=== PATIENT | female | born 1945 | race Caucasian/White ===

== ENCOUNTER → 2017-10-15 | Day surgery (SDC) | payer MEDICARE, OTHER ==
[2017-10-11 14:09] VITALS: BMI 26.1
[~2017-10-15] MED LIST: LACTATED RINGERS 1,000 ML IV SCH; LIDOCAINE 1% 20 ML VIAL (10MG/ML) FOR IV START INTRADERMA ONE; LIDOCAINE 1% INJ 10MG/ML (20 ML MDV) ONE; PROPOFOL 10 MG/ML 20 ML VIAL IV ONE; fentaNYL (PF) 50 MCG/ML 2 ML AMP ONE
[2017-10-15 08:20] VITALS: RESP 18; TEMP 96.9
[2017-10-15 08:51] LABS: Glucose,Whole Blood 70 mg/dL (75-99)
--- NOTE | 2017-10-15 09:27 | P.OP ---
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 Biopsies obtained, small internal hemorrhoids Endoscopic evaluation from the colostomy site normal mucosa to cecum 20 cm, at the orifice edge is a small but appears to be hyperplastic polypoid change Procedure(s) Performed: Endoscopic evaluation from rectum and ostomy site, anoscopic examination Anesthesia: MAC Surgeon: Monie Chopra Estimated Blood Loss (ml): 0 IV fluids (ml): 600 Pathology: other (Biopsies of left colon) Condition: stable Disposition: PACU Indications for Procedure: Patient is a 72-year-old white female who approximately one year ago status post transverse colon resection for near obstructing colon cancer. 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 Rectal examination was performed. Patient was noted to have good sphincter tone no masses. The anal orifice appeared to be somewhat tight. The colonoscope was able to be passed through the anus into the rectum was passed through the residual sigmoid colon up to approximately 80 cm. From 20-80 cm there was marked inflammation of the mucosa. This appeared consistent with disuse proctitis. No polypoid lesions or tumors were identified. 2 advance the scope was believed to be was stapled end of the anastomosis at the end. Several biopsies were obtained of the inflamed mucosa. The scope was carefully withdrawn being careful to evaluate the mucosa and again I inflated mucosa was noted from approximately a centimeters to 20 cm however no polypoid lesions were identified. The scope was brought down into the rectum and was not able to be easily retroflexed. Although in the rectum no lesions of concern other than some inflammation were identified and anoscopic exam was performed. The anoscope was carefully introduced into the anal orifice and slowly withdrawn. On anoscopic exam small internal hemorrhoids identified otherwise no lesions of concern. Endoscopic evaluation was then performed to the ostomy orifice. The patient was placed on her back. And digital examination revealed that there was a small hernia with the colonic opening 10 into the right side of the abdomen. The scope was carefully introduced and able to be introduced to the area of the cecum. Differential observation mucosa did not reveal any lesions of concern in the cecum or the residual right colon. I approximately 20 cm of bowel was left. The patient was noted at the orifice of the ostomy nurse skin level to have a very small polypoid change which appeared to be consistent with possible hyperplastic change. This area will be removed showed the ostomy be reversed. Impression/plan: 1. 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 Questionable small polypoid change near the opening of colostomy 4. Small internal hemorrhoids Plan: 1. Await pathology results 2. Probable reversal of colostomy
--- NOTE | 2017-10-15 09:28 | P.DS ---
Providers Attending physician: Monie Chopra Primary care physician: Sam Olvera Plan - Discharge Summary New Discharge Prescriptions: No Action Cholecalciferol [Vitamin D3] 2,000 unit PO DAILY Pyridoxine [Vitamin B-6] 250 mg PO BID Atorvastatin [Lipitor] 20 mg PO DAILY Potassium Gluconate Tab 595 mg PO DAILY Gabapentin [Neurontin] 300 mg PO BID Cetirizine HCl [Zyrtec] 10 mg PO DAILY Biotin 10,000 mcg PO DAILY predniSONE 20 mg PO DAILY Ipratropium-Albuterol Nebulize [Duoneb 0.5 mg-3 mg/3 ml Soln] 0 ml INHALATION BID PRN PRN Reason: sob Clotrimazole Cream [Lotrimin Cream] 1 applic TOPICAL DAILY Fluticasone/Vilanterol [Breo Ellipta 100-25 Mcg Inhaler] 1 inhalation PO Q24HR Discharge Medication List Cholecalciferol [Vitamin D3] 2,000 unit PO DAILY 08/02/17 [History] Atorvastatin [Lipitor] 20 mg PO DAILY 10/11/17 [History] Biotin 10,000 mcg PO DAILY 10/11/17 [History] Cetirizine HCl [Zyrtec] 10 mg PO DAILY 10/11/17 [History] Clotrimazole Cream [Lotrimin Cream] 1 applic TOPICAL DAILY 10/11/17 [History] Fluticasone/Vilanterol [Breo Ellipta 100-25 Mcg Inhaler] 1 inhalation PO Q24HR 10/11/17 [History] Gabapentin [Neurontin] 300 mg PO BID 10/11/17 [History] Ipratropium-Albuterol Nebulize [Duoneb 0.5 mg-3 mg/3 ml Soln] 0 ml INHALATION BID PRN 10/11/17 [History] Potassium Gluconate Tab 595 mg PO DAILY 10/11/17 [History] Pyridoxine [Vitamin B-6] 250 mg PO BID 10/11/17 [History] predniSONE 20 mg PO DAILY 10/11/17 [History] Follow up Appointment(s)/Referral(s): Monie Chopra MD [STAFF PHYSICIAN] - 1 Week Patient Instructions/Handouts: *Sur[facility] - (Anesthesia) Endoscopy Discharge Instructions, Colonoscopy (DC) Activity/Diet/Wound Care/Special Instructions: Do not drive today Follow-up with Dr. Naranjo in 1 week Discharge Disposition: HOME SELF-CARE
[2017-10-15 09:38] VITALS: BP 180/84; PULSE 64
== END | disposition home or self-care (01) ==
LOC: ORWHC2ENDO 07:57
PROVIDERS: ATTEND Surgery
DX: K52.9 Noninfective gastroenteritis and colitis, unspecified (principal); K64.8 Other hemorrhoids; K46.9 Unspecified abdominal hernia without obstruction or gangrene; K63.5 Polyp of colon; Z93.3 Colostomy status; Z85.038 Personal history of other malignant neoplasm of large intestine; Z90.49 Acquired absence of other specified parts of digestive tract; M19.90 Unspecified osteoarthritis, unspecified site; J44.9 Chronic obstructive pulmonary disease, unspecified; I10 Essential (primary) hypertension; E78.5 Hyperlipidemia, unspecified; C44.90 Unspecified malignant neoplasm of skin, unspecified; Z86.718 Personal history of other venous thrombosis and embolism; Z86.73 Personal history of transient ischemic attack (TIA), and cerebral infarction without residual deficits; Z99.81 Dependence on supplemental oxygen; Z79.51 Long term (current) use of inhaled steroids; Z79.52 Long term (current) use of systemic steroids; Z79.01 Long term (current) use of anticoagulants; Z79.899 Other long term (current) drug therapy; Z88.1 Allergy status to other antibiotic agents; Z87.891 Personal history of nicotine dependence
CPT/HCPCS: 88305; 46600; 44389; J2001; J3010; J2704; 44388; 45380

== ENCOUNTER → 2020-02-15 | Outpatient (CLI) | payer MEDICARE, OTHER ==
--- NOTE | 2020-02-15 13:07 | US ---
EXAMINATION TYPE: US venous doppler duplex LE RT DATE OF EXAM: 02/15/2020 12:46 PM COMPARISON: NONE CLINICAL HISTORY: M25.561 R Knee Pain. SIDE PERFORMED: Right TECHNIQUE: The lower extremity deep venous system is examined utilizing real time linear array sonog mario with graded compression, doppler sonography and color-flow sonography. VESSELS IMAGED: External Iliac Vein (EIV) Common Femoral Vein Deep Femoral Vein Greater Saphenous Vein * Femoral Vein Popliteal Vein Small Saphenous Vein * Proximal Calf Veins (* superficial vessels) Right Leg: Negative for DVT Cystic area visualized measuring 2.8 x 0.5 x 2.0 cm, possible vivas's cyst Grayscale, color doppler, spectral doppler imaging performed of the deep veins of the right lower ext remity. There is normal flow, compressibility, vascular waveforms. IMPRESSION: No ultrasound evidence for acute DVT in the right lower extremity. Suspected small popli teal cyst marked towards the end of the study.
== END | disposition home or self-care (01) ==
LOC: RADUSWWP 12:10
PROVIDERS: ATTEND Orthopaedic Surgery
DX: M25.561 Pain in right knee (principal); M25.571 Pain in right ankle and joints of right foot; I80.9 Phlebitis and thrombophlebitis of unspecified site; M17.11 Unilateral primary osteoarthritis, right knee; M79.661 Pain in right lower leg

== ENCOUNTER → 2020-03-30 | Outpatient (CLI) | payer MEDICARE, OTHER ==
--- NOTE | 2020-03-30 16:37 | MR ---
EXAMINATION TYPE: MR knee RT wo con DATE OF EXAM: 03/30/2020 COMPARISON: None HISTORY: Rt knee patellar bursitis TECHNIQUE: Multiplanar, multisequence imaging of the right knee is performed without IV contrast. FINDINGS: MEDIAL MENISCUS: Posterior horn of the medial meniscus shows linear increased signal at the undersurf geoff extending to the articular surface LATERAL MENISCUS: Anterior and posterior horns are intact without tear. CRUCIATE LIGAMENTS: The anterior and posterior cruciate ligaments are intact and unremarkable. COLLATERAL LIGAMENTS: The medial collateral ligament and lateral collateral ligament complex are inta ct and unremarkable. EXTENSOR MECHANISM: Visualized quadriceps and patellar tendons are intact. EFFUSION: Small suprapatellar joint effusion. POPLITEAL CYST: There is a semimembranosus gastrocnemius cyst measuring approximately 1.6 x 2.9 x 0. 9 cm. TRICOMPARTMENT SPACES: Joint space loss at the patellofemoral joint CARTILAGE: There is grade 2 to grade III chondromalacia at the posterior patella BONE MARROW SIGNAL: No focal abnormal marrow signal is appreciated. OTHER: Prepatellar edema changes are present. Septated T2 intense focus at the posterior aspect of t he knee joint may represent a small meniscal cyst IMPRESSION: Tear of the posterior horn of the medial meniscus. Joint effusion. Osteoarthritis.
== END | disposition home or self-care (01) ==
LOC: RADMRIMAIN 15:00
PROVIDERS: ATTEND Family Medicine
DX: S83.241A Other tear of medial meniscus, current injury, right knee, initial encounter (principal); M17.11 Unilateral primary osteoarthritis, right knee; M25.461 Effusion, right knee

== ENCOUNTER → 2022-03-14 | Outpatient (CLI) | payer MEDICARE, OTHER ==
--- NOTE | 2022-03-14 10:51 | CTL ---
EXAMINATION TYPE: CT Low Dose Lung DATE OF EXAM ORDERED: 03/14/2022 HISTORY: Tobacco use. Lung cancer screening CT DLP: 2.[address] CTDI: 89.2 mGy Automated exposure control for dose reduction was used. SCREENING VISIT: Baseline COMPARISON: No previous CT scan is available for comparison. TECHNIQUE: Low dose computed tomography scan was performed through the chest at 1 mm thick sections a nd reconstructed images in multiple planes at 1 mm and [address] DIAGNOSTIC QUALITY: Satisfactory FINDINGS: LUNG NODULES: None. Left lung solid [address] image 224. LUNGS: COPD: Severity: [id number] Fibrosis: Severity: Mild Lymph nodes: No pathologically enlarged lymph nodes. Other findings: Right basal posterior subsegmental pulmonary atelectasis. Other scattered smaller pul monary atelectasis. Scattered segments of mild bronchial wall thickening, possibly related to chronic bronchitis. RIGHT PLEURAL SPACE: Effusion: None Calcification: None Thickening: None Pneumothorax: None LEFT PLEURAL SPACE: Effusion: None Calcification: None Thickening: None Pneumothorax: None HEART: Heart Size: Normal Coronary Calcification: Moderate Pericardial Effusion: None OTHER FINDINGS: Upper abdomen: Suspected colonic anastomosis in the upper abdomen. Bony thorax: Levoscoliosis of the midthoracic spine. Supraclavicular region: None Other: The pulmonary trunk measures 3.3 cm suggesting pulmonary hypertension. Scattered arterial athe rosclerotic calcifications. IMPRESSION: 5 mm left lung nodule. COPD changes and other incidental findings as described above. CT LUNG RAD AND CT CHEST RECOMMENDATION: Lung-Rad 2 Benign Appearance or Behavior: Continue annual sc reening with LDCT in 12 months. S Modifier (other clinically significant findings): As above.
== END | disposition home or self-care (01) ==
LOC: RADCTMAIN 08:49
PROVIDERS: ATTEND Internal Medicine Critical Care Medicine
DX: Z12.2 Encounter for screening for malignant neoplasm of respiratory organs (principal); J44.9 Chronic obstructive pulmonary disease, unspecified; Z87.891 Personal history of nicotine dependence
CPT/HCPCS: 71271

== ENCOUNTER → 2022-05-28 | Outpatient (CLI) | payer MEDICARE, OTHER ==
[2022-05-28 15:45] LABS: ALT 25 U/L (8-44); AST 40 U/L (13-35); Chol/HDL Ratio 2.46 Ratio; VLDL Calculation 11.66 mg/dL (5.00-40.00)
== END | disposition home or self-care (01) ==
LOC: LABWHC1 09:19
PROVIDERS: ATTEND Internal Medicine
DX: E78.2 Mixed hyperlipidemia (principal)
CPT/HCPCS: 36415; 80061; 84450; 84460

== ENCOUNTER → 2023-08-07 | Outpatient (CLI) | payer MEDICARE, OTHER ==
[2023-08-07 19:55] LABS: Basophils # (A) 0.06 X 10*3/uL (0.00-0.10); Basophils % (A) 0.8 %; Eosinophils # (A) 0 X 10*3/uL (0.04-0.35); Eosinophils % (A) 0 %; HCT 40.2 % (37.2-46.3); Lymphocytes # (A) 2.13 X 10*3/uL (0.90-5.00); Lymphocytes % (A) 27.1 %; MCH 30.3 pg (27.0-32.0); MCHC 32.3 g/dL (32.0-37.0); MCV 93.7 FL (80.0-97.0); Monocytes # (A) 0.66 X 10*3/uL (0.20-1.00); Monocytes % (A) 8.4 %; NRBC Per 100 WBC 0 X 10*3/uL (0.00-0.01); Neutrophils # (A) 4.98 X 10*3/uL (1.80-7.70); Neutrophils % (A) 63.3 %; Platelet Count 271 X 10*3/uL (140-440); RBC 4.29 X 10*6/uL (4.10-5.20); RDW 12.4 % (11.5-14.5); WBC 7.86 X 10*3/uL (4.50-10.00)
[2023-08-08 02:41] LABS: ALT 47 U/L (8-44); AST 55 U/L (13-35); Alkaline Phosphatase 133 U/L (41-126); BUN/Creat Ratio 17.38 Ratio (12.00-20.00); Blood Urea Nitrogen 13.9 mg/dL (9.0-27.0); Calcium 9.4 mg/dL (8.7-10.3); Carbon Dioxide 25.3 mmol/L (21.6-31.8); Chloride 100 mmol/L (96-109); Glucose 97 mg/dL (70-110); Potassium 4.5 mmol/L (3.5-5.5); Sodium 135 mmol/L (135-145); Total Bilirubin 0.3 mg/dL (0.3-1.2)
== END | disposition home or self-care (01) ==
LOC: LABWHC1 12:37
PROVIDERS: ATTEND Internal Medicine Hematology & Oncology
DX: C18.9 Malignant neoplasm of colon, unspecified (principal); Z87.891 Personal history of nicotine dependence
CPT/HCPCS: 36415; 80053; 82378; 85025

== ENCOUNTER → 2024-12-31 | Outpatient (CLI) | payer MEDICARE, OTHER ==
[2024-12-31 09:49] LABS: Basophils % (A) 0 %; Eosinophils # (A) 0.1 k/uL (0-0.7); Eosinophils % (A) 1 %; HCT 34.5 % (34.0-46.0); HGB 10.9 gm/dL (11.4-16.0); Hypochromasia Moderate; Lymphocytes # (A) 1.5 k/uL (1.0-4.8); Lymphocytes % (A) 21 %; MCH 30.5 pg (25.0-35.0); MCHC 31.7 g/dL (31.0-37.0); MCV 96.3 fL (80.0-100.0); Mean Platelet Volume 6.8; Monocytes # (A) 0.6 k/uL (0-1.0); Monocytes % (A) 8 %; Neutrophils # (A) 4.8 k/uL (1.3-7.7); Neutrophils % (A) 68 %; Platelet Count 432 k/uL (150-450); RBC 3.58 m/uL (3.80-5.40); WBC 7.1 k/uL (3.8-10.6)
[2024-12-31 09:54] LABS: Prothrombin Time 10.6 sec (10.0-12.5)
[2024-12-31 10:12] LABS: African American GFR (CKD) >90 (>60 ml/min/1.73 sqM); Anion Gap 4 mmol/L; Blood Urea Nitrogen 16 mg/dL (7-17); Calcium 9.2 mg/dL (8.4-10.2); Carbon Dioxide 36 mmol/L (22-30); Chloride 94 mmol/L (98-107); Glucose 114 mg/dL (74-99); Non-African American GFR(CKD) 78 (>60 ml/min/1.73 sqM); Potassium 3.5 mmol/L (3.5-5.1); Sodium 134 mmol/L (137-145)
--- NOTE | 2024-12-31 13:14 | CT ---
EXAMINATION TYPE: CT angio chest DATE OF EXAM: 12/31/2024 COMPARISON: CT low-dose thorax 03/14/2022 CLINICAL INDICATION: Female, 79 years old with history of I48.0 PAROXYSMAL ATRIAL FIBRILLATION; [facility], pre surgical watchman TECHNIQUE: CTA scan of the thorax is performed with IV Contrast, patient injected with 65 ML mL of Isovue 370, p ulmonary embolism protocol. MIP images are created and reviewed. CT DLP: 1375.[address] CTDI: mGy Automated exposure control for dose reduction was used. FINDINGS: The ascending thoracic aorta is normal in caliber measuring approximately 3 cm. The aortic root is no rmal in caliber measuring approximately 3.3 cm. There is no mediastinal, hilar or axillary adenopathy. There are no filling defects within the pulmonary artery to suggest pulmonary embolism. There is a focal area of interstitial thickening right middle lobe consistent with mild chronic inter stitial scarring or fibrosis. There are no suspicious lung masses or nodules in the visualized lung f ields which are not imaged in their entirety. IMPRESSION: 1. No aneurysm or dissection of the thoracic aorta. 2. No cardiomegaly. 3. No mediastinal or hilar adenopathy. 4. Focal scarring or fibrosis in the right middle lobe. [facility], Workstation: [email or web address] 12/31/2024 1:12 PM
== END | disposition home or self-care (01) ==
LOC: RADCTMAIN 09:24
PROVIDERS: ATTEND Student in an Organized Health Care Education/Training Program
DX: I48.0 Paroxysmal atrial fibrillation (principal)
CPT/HCPCS: 80048; 85025; 85610; 71275; 36415; Q9967

== ENCOUNTER → 2025-03-23 | Outpatient (CLI) | payer MEDICARE, OTHER ==
[2025-03-23 16:45] LABS: Basophils # (A) 0.05 10*3/uL (0.00-0.10); Basophils % (A) 0.6 %; HCT 38.4 % (37.2-46.3); HGB 12.1 g/dL (12.0-15.0); Lymphocytes # (A) 2.02 10*3/uL (0.90-5.00); Lymphocytes % (A) 25.9 %; MCH 28.7 pg (27.0-32.0); MCHC 31.5 g/dL (32.0-37.0); Mean Platelet Volume 9.3 fL (9.5-12.2); Monocytes # (A) 0.63 10*3/uL (0.20-1.00); Monocytes % (A) 8.1 %; Neutrophils # (A) 5.09 10*3/uL (1.80-7.70); Neutrophils % (A) 65.1 %; Platelet Count 281 10*3/uL (140-440); RBC 4.22 10*6/uL (4.10-5.20); RDW 13.9 % (11.5-14.5); WBC 7.81 10*3/uL (4.50-10.00)
[2025-03-23 17:04] LABS: African American GFR (CKD) 89 (>60 ml/min/1.73 sqM); Anion Gap 9 mmol/L; Blood Urea Nitrogen 18 mg/dL (7-17); Carbon Dioxide 31 mmol/L (22-30); Chloride 98 mmol/L (98-107); Glucose 92 mg/dL (74-99); Non-African American GFR(CKD) 77 (>60 ml/min/1.73 sqM); Potassium 4.4 mmol/L (3.5-5.1); Sodium 138 mmol/L (137-145)
[2025-03-23 17:07] LABS: INR 0.9 (<1.2); Prothrombin Time 10.3 sec (10.0-12.5)
--- NOTE | 2025-03-23 18:29 | CT ---
EXAMINATION TYPE: CT angio chest DATE OF EXAM: 03/23/2025 5:47 PM COMPARISON: Prior CT chest study 12/31/2024. CLINICAL INDICATION: Female, 79 years old with history of I48.0 PAROXYSMAL ATRIAL FIBRILLATION; WATCH MAN DEVICE PUT IN PREVIOUSLY, MONITORING TECHNIQUE/CONTRAST: CTA scan of the thorax is performed with IV Contrast, patient injected with 65 mL of Isovue 370, MIP images are created and reviewed these are created on a separate workstation.. CT DLP: 1361.9 mGycm, Automated exposure control for dose reduction was used. FINDINGS: Pulmonary Artery: There is no evidence for a filling defect within the central pulmonary vasculature to suggest acute pulmonary embolism. Dilated main pulmonary artery measuring 3.5 cm, which can be ass ociated with pulmonary hypertension. Lungs/Pleura: No evidence of focal consolidation, pleural effusion or pneumothorax. Emphysema. Mucous plugging in the right lower lobe with associated scarring/atelectasis. Airway: Large airways are patent. Heart: Cardiomegaly. Watchman device in place within the left atrial appendage some contrast visualiz ed in the left atrial appendage suggesting mild perivalvular leak. No contrast visualized within the Watchman device. No definite left atrial thrombus. Coronary artery calcifications. Vasculature: Calcified splenic disease of the thoracic aorta without aneurysmal dilatation. Mediastinum: No gross evidence of adenopathy. Musculoskeletal: No acute osseous abnormalities Soft Tissues/lymph nodes: Unremarkable. Lower neck: No significant findings. Upper Abdomen: No significant findings. IMPRESSION: Contrast visualized within the left atrial appendage suggesting mild peridevice leak as described abo ve. [facility], , 03/23/2025 6:26 PM
== END | disposition home or self-care (01) ==
LOC: RADCTMAIN 16:03
PROVIDERS: ATTEND Student in an Organized Health Care Education/Training Program
DX: I48.0 Paroxysmal atrial fibrillation (principal)
CPT/HCPCS: 80048; 85025; 85610; 71275; 36415; Q9967